=== PATIENT | male | born 1955 | race African-American/Black ===

== ENCOUNTER 2018-10-16 09:42 | Emergency (ER) | payer SELFPAY ==
[2018-10-16 10:09] LABS: Bilirubin Negative (Negative); Blood, Urine Large (Negative); Clarity Slightly Cloudy (Clear); Glucose, Urine (Dipstick) Negative (Negative); Leukocyte Moderate (Negative); Nitrite Positive (Negative); Protein, Urine (Dipstick) 100 mg/dL (Neg-Trace); Urobilinogen 0.2 mg/dL (Less than 2)
[2018-10-16 10:25] LABS: Bacteria/HPF 2+ HPF (None Seen); Squamous Epithelial 0-3 HPF (0-3); WBC/HPF Greater Than 50 HPF (0-3)
== END 2018-10-16 10:47 | disposition home or self-care (01) ==
LOC: SCSER 09:42
DX: N30.00 Acute cystitis without hematuria (principal); E78.5 Hyperlipidemia, unspecified
CPT/HCPCS: 81003; 81015; 87077; 87086; 87186; 99283